=== PATIENT | male | born 2000 | race Caucasian/White ===

== ENCOUNTER 2023-01-19 12:55 | Emergency (ER) | payer MEDICAID, OTHER ==
[~2023-01-19] VITALS: Ht 190 cm; Wt 81.6 kg
--- NOTE | 2023-01-19 13:19 | ED Cough/URI ---
General Chief Complaint: Cough/Cold/Flu Symptoms Stated Complaint: CHILLS | FLU-LIKE SYMPTOMS Nursing Triage Note: pt ambulates to triage with c/o productive cough with green/yellow mucus, chills and dry throat since this am. pt reports some nausea, zofran effective this am. pt has chills during assessment, afebrile. Source: patient Exam Limitations: no limitations History of Present Illness Date Seen by Provider: Jan 19, 2023 Time Seen by Provider: 13:21 Initial Comments Patient is a 22-year-old male who presents to ED for flulike symptoms. Patient states he woke up this morning with a productive cough of green-yellowish mucus. Reports chills and shaking. States he has a dry mouth and sore throat. Patient reports nausea but did take Zofran at home. States he is experiencing chills throughout the morning and early afternoon. Denies any vomiting or diarrhea. Denies history of diabetes, asthma, hypertension. History of cholecystectomy. Did take ibuprofen 400 mg before arrival. Afebrile. Denies of any pain with urination frequent urination, dizziness. Does report a headache. Denies of any known fever. Patient denies chest pain, shortness of breath, Skyler pain, pain with urination, frequent urination. Denies any drug use or alcohol use. Allergies and Home Medications Allergies Coded Allergies: No Known Drug Allergies (Unverified , 01/19/23) Patient Home Medication List Home Medication List Reviewed: Yes Ondansetron (Ondansetron Odt) 4 Mg Tab.rapdis, 4 MG SL Q4H PRN for NAUSEA/VOMITING Prescribed by: LIZBET ANDERSON on 01/19/23 8201 Review of Systems Review of Systems Constitutional: chills; No diaphoresis; malaise, weakness Respiratory: cough; No dyspnea on exertion, No hemoptysis, No orthopnea, No short of breath Cardiovascular: No chest pain Gastrointestinal: No abdominal pain, No diarrhea; nausea; No vomiting Genitourinary: No decreased output Musculoskeletal: No back pain, No gout Skin: No change in color, No change in hair/nails All Other Systems Reviewed Negative Unless Noted: Yes Past Pxdapge-Aumodu-Vlsbma Hx Patient Social History Tobacco Use?: No Substance use?: No Alcohol Use?: No Physical Exam Vital Signs - First Documented 01/19/23 13:04 Temp 36.9 Pulse 112 Resp 20 B/P (MAP) 124/73 (90) Pulse Ox 98 O2 Delivery Room Air Capillary Refill : Height: '" Weight: lbs. oz. kg; 22.00 BMI Method: General Appearance: WD/WN, no apparent distress Eyes: Bilateral Eye Normal Inspection, Bilateral Eye PERRL, Bilateral Eye EOMI HEENT: PERRL/EOMI, normal ENT inspection, TMs normal, other (Pharynx with erythema without swelling or exudate. 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, no motor/sensory deficits, alert, normal mood/affect, oriented x 3 Skin: normal color, warm/dry Progress/Results/Core Measures Suspected Sepsis SIRS Temperature: Pulse: 112 Respiratory Rate: 20 Laboratory Tests 01/19/23 13:35: White Blood Count 24.3H Blood Pressure 124 /73 Mean: 90 Laboratory Tests 01/19/23 13:35: Creatinine 1.10, Platelet Count 261, Total Bilirubin 1.0 Results/Orders Lab Results Laboratory Tests Test 01/19/23 13:06 01/19/23 13:30 01/19/23 13:35 Range/Units Influenza Type A (RT-PCR) Not Detected Not Detecte Influenza Type B (RT-PCR) Not Detected Not Detecte SARS-CoV-2 RNA (RT-PCR) Not Detected Not Detecte Urine Color YELLOW Urine Clarity CLEAR Urine pH 8.5 5-9 Urine Specific [place] 1.020 1.016-1.022 Urine Protein NEGATIVE NEGATIVE Urine Glucose (UA) NEGATIVE NEGATIVE Urine Ketones NEGATIVE NEGATIVE Urine Nitrite NEGATIVE NEGATIVE Urine Bilirubin NEGATIVE NEGATIVE Urine Urobilinogen 0.2 < = 1.0 MG/DL Urine Leukocyte Esterase NEGATIVE NEGATIVE Urine RBC (Auto) NEGATIVE NEGATIVE Urine RBC NONE /HPF Urine WBC RARE /HPF Urine Squamous Epithelial Cells NONE /HPF Urine Crystals NONE /LPF Urine Bacteria NEGATIVE /HPF Urine Casts NONE /LPF Urine Mucus NEGATIVE /LPF Urine Culture Indicated NO White Blood Count 24.3 H 4.3-11.0 10^3/uL Red Blood Count 5.49 4.30-5.52 10^6/uL Hemoglobin 15.7 13.3-17.7 g/dL Hematocrit 46 40-54 % Mean Corpuscular Volume 83 80-99 fL Mean Corpuscular Hemoglobin 29 25-34 pg Mean Corpuscular Hemoglobin Concent 35 32-36 g/dL Red Cell Distribution Width 12.4 10.0-14.5 % Platelet Count 261 130-400 10^3/uL Mean Platelet Volume 10.0 9.0-12.2 fL Immature Granulocyte % (Auto) 3 % Neutrophils (%) (Auto) 84 H 42-75 % Lymphocytes (%) (Auto) 6 L 12-44 % Monocytes (%) (Auto) 6 0-12 % Eosinophils (%) (Auto) 0 0-10 % Basophils (%) (Auto) 0 0-10 % Neutrophils # (Auto) 20.5 H 1.8-7.8 10^3/uL Lymphocytes # (Auto) 1.5 1.0-4.0 10^3/uL Monocytes # (Auto) 1.4 H 0.0-1.0 10^3/uL Eosinophils # (Auto) 0.0 0.0-0.3 10^3/uL Basophils # (Auto) 0.1 0.0-0.1 10^3/uL Immature Granulocyte # (Auto) 0.8 H 0.0-0.1 10^3/uL Neutrophils % (Manual) 84 % Lymphocytes % (Manual) 0 % Monocytes % (Manual) 4 % Eosinophils % (Manual) 0 % Basophils % (Manual) 0 % Band Neutrophils 2 % Reactive Lymphocytes 10 % Blood Morphology Comment NORMAL Sodium Level 135 135-145 MMOL/L Potassium Level 3.6 3.6-5.0 MMOL/L Chloride Level 104 98-107 MMOL/L Carbon Dioxide Level 21 21-32 MMOL/L Anion Gap 10 5-14 MMOL/L Blood Urea Nitrogen 11 7-18 MG/DL Creatinine 1.10 0.60-1.30 MG/DL Estimat Glomerular Filtration Rate 98 BUN/Creatinine Ratio 10 Glucose Level 113 H 70-105 MG/DL Calcium Level 9.5 8.5-10.1 MG/DL Corrected Calcium 8.5-10.1 MG/DL Total Bilirubin 1.0 0.1-1.0 MG/DL Aspartate Amino Transf (AST/SGOT) 17 5-34 U/L Alanine Aminotransferase (ALT/SGPT) 23 0-55 U/L Alkaline Phosphatase 79 40-136 U/L C-Reactive Protein High Sensitivity 1.19 H 0.00-0.50 MG/DL Total Protein 8.0 6.4-8.2 GM/DL Albumin 4.6 H 3.2-4.5 GM/DL Group A Streptococcus Screen Not Detected NotDetected My Orders Orders - MARU SAM Covid 19 Inhouse Test (01/19/23 13:09) Influenza A And B By Pcr (01/19/23 13:09) Rapid Strep A Screen (01/19/23 13:18) Acetaminophen Tablet (Acetaminophen Ta (01/19/23 13:30) Cbc And Automated Diff (01/19/23 13:19) Comprehensive Metabolic Panel (01/19/23 13:19) Hs C Reactive Protein (01/19/23 13:19) Ondansetron Oral Dissolve Tab (Ondanset (01/19/23 13:45) Ns Iv 1000 Ml (Ns Iv 1000 Ml) (01/19/23 13:33) Ondansetron Oral Dissolve Tab (Ondanset (01/19/23 13:32) Ondansetron Injection (Ondansetron Inj (01/19/23 13:45) Ondansetron Injection (Ondansetron Inj (01/19/23 13:41) Manual Differential (01/19/23 13:35) Chest 1 View, Ap/Pa Only (01/19/23 14:08) Ua Culture If Indicated (01/19/23 14:08) Neis Bertrand Dna Urine Test (01/19/23 14:27) Chlamydia Trachomatis Urine (01/19/23 14:27) Medications Given in ED Current Medications Medications Dose Ordered Sig/Reji Route Start Time Stop Time Status Last Admin Dose Admin Acetaminophen 1,000 mg ONCE ONCE PO 01/19/23 13:30 01/19/23 13:31 DC 01/19/23 13:30 1,000 MG Ondansetron HCl 4 mg ONCE ONCE IVP 01/19/23 13:45 01/19/23 13:46 DC 01/19/23 13:51 4 MG Vital Signs/I&O 01/19/23 01/19/23 13:04 15:12 Temp 36.9 Pulse 112 97 Resp 20 20 B/P (MAP) 124/73 (90) 123/60 Pulse Ox 98 98 O2 Delivery Room Air Room Air Capillary Refill : Blood Pressure Mean: 90 Departure Communication (PCP) Patient is a 22-year-old male fairly healthy presents ED with URI symptoms. Symptoms started this morning. Reports having chills. On arrival patient appeared pale slightly tachycardic but afebrile. COVID influenza and strep were ordered. No wheezing or shortness of breath. Patient with a wet cough. No specific abdominal tenderness. No meningeal signs. He has no thoracic or lumbar midline tenderness. Denies any drug use. No urinary symptoms. Currently sexually active. CBC, CMP, lipase, CRP, urinalysis chest x-ray were ordered as well. COVID and influenza and strep were negative. He received a liter of fluid. Did vomit once here and felt significant better with better color tone. Did receive Zofran. CBC showed a white blood count 24. Chemistry was grossly unremarkable. CRP of 1. Urinalysis was negative for infection. COVID influenza and strep were negative. Patient was requesting to check for chlamydia and gonorrhea but denies of any specific symptoms at this time. Did add cultures on urine. No sexual intercourse until results. Patient Was not treated empirically. Reassessed patient without any specific tenderness to the abdomen suggesting surgical. Heart rate did improve. Remained afebrile. Denies eating anything different the last night. No one else around him with similar symptoms. Suspect this is likely the flu. Suggest recheck of COVID or influenza in the next 2 or 3 days. Will prescribe Zofran. Recommend hydration. Alternate Tylenol ibuprofen. I do suggest recheck of your white blood count with your PCP in the next 1 to 2 days. If any worsening symptoms such as fever, vomiting or developing abdominal pain chest pain return back to ED. Impression Primary Impression: Upper respiratory infection Disposition: 01 HOME, SELF-CARE Condition: Stable Departure-Patient Inst. Decision time for Depature: 15:02 Referrals: OMERO STYLES APRN (PCP/Family) Primary Care Physician Patient Instructions: Flu, Adult (DC) Add. Discharge Instructions: Recommend drinking plenty of fluids. Alternate Tylenol ibuprofen. If any worsening symptoms return back to ED. Follow-up with PCP 1 to 2 days for reevaluation. All discharge instructions reviewed with patient and/or family. Voiced understanding. Scripts Ondansetron (Ondansetron Odt) 4 Mg Tab.rapdis 4 MG SL Q4H PRN for NAUSEA/VOMITING, #6 TAB Prov: MARU SAM 01/19/23 Work/School Note: Work Release Form Date Seen in the Emergency Department: Jan 19, 2023 Return to Work: Jan 22, 2023 MARU SAM Jan 19, 2023 13:19
[2023-01-19] MEDS ORDERED: ACETAMINOPHEN 500 MG TABLET PO ONE (13:30)
[2023-01-19] MEDS ORDERED: ONDANSETRON 4 MG ORAL DISSOLVE TABLET ONE (13:32)
[2023-01-19] MEDS ORDERED: NS IV 1000 ML 1,000 ML IV STA (13:33)
[2023-01-19] MEDS ORDERED: ONDANSETRON INJECTION 4 MG/2 ML (SDV) ONE (13:41)
[2023-01-19 13:45] LABS: BASOPHILS # (AUTO) 0.1 10^3/uL (0.0-0.1); BASOPHILS % (AUTO) 0 % (0-10); EOSINOPHILS % (AUTO) 0 % (0-10); HEMATOCRIT 46 % (40-54); HEMOGLOBIN 15.7 g/dL (13.3-17.7); LYMPHOCYTES # (AUTO) 1.5 10^3/uL (1.0-4.0); LYMPHOCYTES % (AUTO) 6 % (12-44); MEAN CORPUSCULAR HEMOGLOBIN 29 pg (25-34); MEAN CORPUSCULAR HGB CONC 35 g/dL (32-36); MEAN CORPUSCULAR VOLUME 83 fL (80-99); MONOCYTES # (AUTO) 1.4 10^3/uL (0.0-1.0); MONOCYTES % (AUTO) 6 % (0-12); NEUTROPHILS # (AUTO) 20.5 10^3/uL (1.8-7.8); NEUTROPHILS % (AUTO) 84 % (42-75); PLATELET COUNT 261 10^3/uL (130-400); WHITE BLOOD COUNT 24.3 10^3/uL (4.3-11.0)
[2023-01-19] MEDS ORDERED: ONDANSETRON INJECTION 4 MG/2 ML (SDV) IVP ONE (13:45)
[2023-01-19] MEDS ORDERED: ONDANSETRON 4 MG ORAL DISSOLVE TABLET PO ONE (13:45)
[2023-01-19 13:54] LABS: ALBUMIN 4.6 GM/DL (3.2-4.5); CHLORIDE 104 MMOL/L (98-107); POTASSIUM 3.6 MMOL/L (3.6-5.0); SODIUM 135 MMOL/L (135-145)
[2023-01-19 13:55] LABS: CALCIUM 9.5 MG/DL (8.5-10.1)
[2023-01-19 13:56] LABS: GLUCOSE 113 MG/DL (70-105)
[2023-01-19 13:58] LABS: CARBON DIOXIDE 21 MMOL/L (21-32)
[2023-01-19 14:00] LABS: ALKALINE PHOSPHATASE 79 U/L (40-136); GFR ESTIMATED 98
[2023-01-19 14:01] LABS: BAND NEUTROPHILS 2 %; BASOPHILS % (MANUAL) 0 %; BUN/CREATININE RATIO 10; EOSINOPHILS % (MANUAL) 0 %; LYMPHOCYTES % (MANUAL) 0 %; MONOCYTES % (MANUAL) 4 %; NEUTROPHILS % (MANUAL) 84 %; RBC MORPH NORMAL; REACTIVE LYMPHOCYTES 10 %
[2023-01-19 14:03] LABS: ALANINE AMINOTRANSFERASE 23 U/L (0-55)
[2023-01-19 14:19] LABS: CLARITY,URINE CLEAR; COLOR,URINE YELLOW; PH,URINE 8.5 (5-9)
[2023-01-19 14:20] LABS: BACTERIA,URINE NEGATIVE /HPF; BILIRUBIN,URINE NEGATIVE (NEGATIVE); GLUCOSE, URINE (UA) NEGATIVE (NEGATIVE); KETONES,URINE NEGATIVE (NEGATIVE); LEUKOCYTE ESTERASE ,URINE NEGATIVE (NEGATIVE); NITRITE,URINE NEGATIVE (NEGATIVE); PROTEIN,URINE NEGATIVE (NEGATIVE); WBC,URINE RARE /HPF
--- NOTE | 2023-01-19 14:57 | Diagnostic Imaging Report ---
INDICATION: Productive cough, chills, strep throat. COMPARISON: No priors. FINDINGS: The lungs are clear. No failure, effusion or pneumothorax. IMPRESSION: Normal frontal chest. Dictated by: Dictated on workstation # [id number]
[2023-01-19] MEDS ORDERED: ONDA4TAB11 SL (15:04)
[2023-01-19 15:12] VITALS: BP 123/60
[2023-01-23] MEDS ORDERED: AZIT500T9 PO (06:41)
== END 2023-01-19 15:12 | disposition home or self-care (01) ==
LOC: ER 13:00
DX: J06.9 Acute upper respiratory infection, unspecified (principal)
CPT/HCPCS: 36415; 71045; 80053; 81000; 85007; 85027; 86141; 87430; 87491; 87591; 87636

== ENCOUNTER 2023-01-29 23:32 | Emergency (ER) | payer MEDICAID ==
[~2023-01-29] VITALS: Ht 190.5 cm; Wt 81.0 kg
[~2023-01-29 23:32] MED LIST: AZIT500T9 PO; ONDA4TAB11 SL
--- NOTE | 2023-01-30 00:03 | ED Psychosocial ---
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 oz. kg; 22.00 BMI Method: Progress/Results/Core Measures Results/Orders My Orders Orders - CHANA CAMARENA DO Drug Screen Stat (Urine) (01/29/23 23:54) Vital Signs/I&O 01/29/23 23:58 Temp 36.6 Pulse 135 Resp 14 B/P (MAP) 172/96 (121) Departure Impression Primary Impression: Drug use Disposition: 01 HOME, SELF-CARE Condition: Stable Departure-Patient Inst. Decision time for Depature: 00:02 Referrals: OMERO STYLES APRN (PCP/Family) Primary Care Physician Patient Instructions: ALCOHOL AND SUBSTANCE ABUSE Add. Discharge Instructions: NO DRUGS OF ANY KIND!! LOTS OF CLEAR LIQUIDS--WATER, BROTH, JELLO, GATORADE FOLLOW UP WITH YOUR DR NEEDED, RETURN TO ER IF SYMPTOMS WORSEN All discharge instructions reviewed with patient and/or family. Voiced understanding. CHANA CAMARENA DO Jan 30, 2023 00:03
[2023-01-30 00:41] VITALS: BP 139/77
== END 2023-01-30 00:44 | disposition home or self-care (01) ==
LOC: EDUNIT# 23:32 → ER 23:36
DX: F19.90 Other psychoactive substance use, unspecified, uncomplicated (principal)
CPT/HCPCS: 99281